=== PATIENT | male | born 1960 | race Caucasian/White ===

== ENCOUNTER 2019-08-02 23:08 | Inpatient (IN) | payer MEDICAID, OTHER ==
[~2019-08-02] VITALS: Ht 177.8 cm; Wt 70.6 kg
[2019-08-02] MEDS ORDERED: SODIUM CHLORIDE FLUSH 10ML SYR IVF ONE (23:30)
[2019-08-02] MEDS ORDERED: ONDANSETRON 2MG/ML, 2ML IVPush ONE (23:30)
[2019-08-02] MEDS ORDERED: ONDANSETRON 2MG/ML, 2ML ONE (23:30)
[2019-08-02] MEDS ORDERED: MORPHINE SULFATE 4 MG/ML, 1ML ONE (23:31)
[2019-08-02 23:34] LABS: BASOPHILS # (AUTO) 0.01 x10^3/uL (0-0.1); BASOPHILS % (AUTO) 0 % (0-1); EOSINOPHILS % (AUTO) 0 % (1-7); LYMPHOCYTES # (AUTO) 0.82 x10^3/uL (1-3.4); LYMPHOCYTES % (AUTO) 10 % (22-44); MD NO; MEAN CORPUSCULAR HEMOGLOBIN 30.8 pg (27.5-34.5); MEAN CORPUSCULAR HGB CONC 33.5 g/dL (33.2-36.2); MEAN CORPUSCULAR VOLUME 92.1 fL (81-97); MEAN PLATELET VOLUME 8.2 fL (7.4-10.4); MONOCYTES # (AUTO) 1.01 x10^3/uL (0.2-0.8); MONOCYTES % (AUTO) 13 % (2-9); NEUTROPHILS # (AUTO) 6.27 x10^3/uL (1.8-6.8); NEUTROPHILS % (AUTO) 77 % (42-75); PLATELET COUNT 153 x10^3/uL (130-400); RED CELL DISTRIBUTION WIDTH 15.2 % (9.4-14.8)
[2019-08-02] MEDS: MORPHINE SULFATE 4 MG/ML, 1ML IVPush PRN (23:38)
[2019-08-02 23:47] LABS: ALANINE AMINOTRANSFERASE 48 U/L (12-78); ALBUMIN 3.1 g/dL (3.4-5.0); ANION GAP 7 mmol/L (5-15); CALCIUM 8.2 mg/dL (8.5-10.1); CHLORIDE 99 mmol/L (98-107); CREATININE 1.03 mg/dL (0.7-1.3)
[2019-08-02 23:49] LABS: ALKALINE PHOSPHATASE 78 U/L (45-117); BILIRUBIN,TOTAL 0.4 mg/dL (0.2-1.0)
--- NOTE | 2019-08-02 23:55 | NUR ---
Patient bib remsa c/o abdominal pain x1 week. Patient states he [facility] and was diagnosed with influenza a. He has pain in the RLQ which he rates as a 8/10 on the pain scale.
--- NOTE | 2019-08-03 00:17 | NUR ---
Pt in [place]
[2019-08-03 01:40] LABS: MICROSCOPIC NOT IND
[2019-08-03] MEDS ORDERED: MORPHINE SULFATE 4 MG/ML, 1ML ONE (01:40)
[2019-08-03] MEDS: MORPHINE SULFATE 4 MG/ML, 1ML IVPush PRN (01:43)
[2019-08-03 01:51] LABS: CULTURE INDICATED? NO
[2019-08-03] MEDS ORDERED: CEFTRIAXONE PMX 1GM/50ML 50 ML ONE (01:56)
[2019-08-03] MEDS ORDERED: SODIUM CHLORIDE FLUSH 10ML SYR IVF ONE (02:00)
[2019-08-03] MEDS ORDERED: methylPREDNISolone SOD SUCC 125 MG/2 ML IV ONE (02:00)
[2019-08-03] MEDS ORDERED: ALBUTEROL/IPRATROPIUM 2.5MG/0.5MG, 3 ML NPPB ONE (02:00)
[2019-08-03] MEDS ORDERED: AZITHROMYCIN 500 MG in SODIUM CHLORIDE 0.9% 250 ML IVPB ONE (02:00)
[2019-08-03] MEDS ORDERED: CEFTRIAXONE PMX 1GM/50ML 50 ML IVPB ONE (02:00)
[2019-08-03] MEDS ORDERED: methylPREDNISolone SOD SUCC 125 MG/2 ML ONE (02:01)
[2019-08-03] MEDS ORDERED: ALBUTEROL/IPRATROPIUM 2.5MG/0.5MG, 3 ML ONE (02:06)
[2019-08-03] MEDS ORDERED: ALBUTEROL/IPRATROPIUM 2.5MG/0.5MG, 3 ML NPPB PRN (02:30)
[2019-08-03] MEDS ORDERED: ONDANSETRON 2MG/ML, 2ML IVPush PRN (02:30)
[2019-08-03] MEDS ORDERED: CYCLOBENZAPRINE 10 MG TABLET PO PRN (02:30)
[2019-08-03] MEDS ORDERED: morphine SULFATE 10 MG/ML, 1ML IVPush PRN (02:30)
[2019-08-03] MEDS: IPRATROPIUM 0.5 MG/2.5 ML INHA NPPB SCH ×4 (03:00→20:16)
[2019-08-03 04:33] LABS: RAPID INFLUENZA A POSITIVE (Negative); RAPID INFLUENZA B Negative (Negative)
[2019-08-03] MEDS ORDERED: OMNIPAQUE 350 MG/ML, 100ML BOTTLE ONE (06:22)
[2019-08-03 07:51] VITALS: BP 113/67
[2019-08-03] MEDS: AMOXICILLIN/CLAV 875-125MG TABLET PO SCH ×2 (08:18→20:52)
[2019-08-03] MEDS: OSELTAMIVIR 75 MG CAPSULE PO SCH ×2 (08:18→20:52)
[2019-08-03] MEDS: DOXYCYCLINE 100MG TABLET PO SCH ×2 (08:18→20:52)
[2019-08-03] MEDS: GUAIFENESIN 200 MG TABLET PO SCH ×3 (08:18→20:52)
[2019-08-03] MEDS: methylPREDNISolone SOD SUCC 40 MG/ML IV SCH ×2 (08:24→15:51)
[2019-08-03 13:51] VITALS: BP 127/66
[2019-08-03] MEDS: SODIUM CHLORIDE 0.9% 1,000 ML IV SCH (15:51)
[2019-08-03] MEDS: GUAIFENESIN/DM 200-20MG, 10ML UDC PO PRN (17:35)
[2019-08-03 19:24] VITALS: BP 104/69
[2019-08-04] MEDS: SODIUM CHLORIDE 0.9% 1,000 ML IV SCH (00:20)
[2019-08-04] MEDS: methylPREDNISolone SOD SUCC 40 MG/ML IV SCH ×4 (00:24→21:05)
[2019-08-04 01:54] VITALS: BP 119/79
[2019-08-04] MEDS: HYDROcodone/APAP 5/325 TABLET PO PRN ×5 (02:09→19:49)
[2019-08-04] MEDS: GUAIFENESIN/DM 200-20MG, 10ML UDC PO PRN ×3 (02:10→19:48)
[2019-08-04] MEDS: IPRATROPIUM 0.5 MG/2.5 ML INHA NPPB SCH ×4 (03:00→21:00)
[2019-08-04] MEDS: GUAIFENESIN 200 MG TABLET PO SCH ×5 (05:22→21:04)
[2019-08-04 05:44] LABS: CHLORIDE 105 mmol/L (98-107)
[2019-08-04 05:48] LABS: BASOPHILS # (AUTO) 0.01 x10^3/uL (0-0.1); BASOPHILS % (AUTO) 0 % (0-1); EOSINOPHILS % (AUTO) 0 % (1-7); LYMPHOCYTES # (AUTO) 0.89 x10^3/uL (1-3.4); LYMPHOCYTES % (AUTO) 10 % (22-44); MD NO; MEAN CORPUSCULAR HEMOGLOBIN 30.9 pg (27.5-34.5); MEAN CORPUSCULAR VOLUME 93.5 fL (81-97); MEAN PLATELET VOLUME 8.6 fL (7.4-10.4); MONOCYTES # (AUTO) 1.33 x10^3/uL (0.2-0.8); MONOCYTES % (AUTO) 15 % (2-9); NEUTROPHILS % (AUTO) 75 % (42-75); PLATELET COUNT 144 x10^3/uL (130-400); RED BLOOD COUNT 4.16 x10^6/uL (4.38-5.82); RED CELL DISTRIBUTION WIDTH 15.5 % (9.4-14.8)
[2019-08-04 05:52] LABS: ALANINE AMINOTRANSFERASE 43 U/L (12-78); ALBUMIN 2.8 g/dL (3.4-5.0); ALKALINE PHOSPHATASE 60 U/L (45-117); ANION GAP 2 mmol/L (5-15); BILIRUBIN,TOTAL 0.5 mg/dL (0.2-1.0); CALCIUM 8.2 mg/dL (8.5-10.1); CREATININE 0.81 mg/dL (0.7-1.3); TOTAL PROTEIN 6.2 g/dL (6.4-8.2)
[2019-08-04 07:11] VITALS: BP 106/68
[2019-08-04] MEDS ORDERED: LEVOFLOXACIN/PMX 750MG/150ML 150 ML IV SCH (08:00)
[2019-08-04] MEDS: DOXYCYCLINE 100MG TABLET PO SCH ×2 (08:21→21:04)
[2019-08-04] MEDS: AMOXICILLIN/CLAV 875-125MG TABLET PO SCH ×2 (08:21→21:04)
[2019-08-04] MEDS: OSELTAMIVIR 75 MG CAPSULE PO SCH ×2 (08:21→21:04)
[2019-08-04 13:29] VITALS: BP 113/76
[2019-08-04] MEDS: ALBUTEROL/IPRATROPIUM 2.5MG/0.5MG, 3 ML NPPB SCH ×3 (15:05→20:10)
[2019-08-04 19:43] VITALS: BP 135/88
[2019-08-04 23:31] VITALS: BP 138/84
[2019-08-05] MEDS: HYDROcodone/APAP 5/325 TABLET PO PRN ×3 (00:26→15:25)
[2019-08-05] MEDS: GUAIFENESIN 200 MG TABLET PO SCH ×4 (05:05→21:41)
[2019-08-05 05:29] LABS: CHLORIDE 104 mmol/L (98-107)
[2019-08-05 05:33] LABS: MEAN CORPUSCULAR HEMOGLOBIN 30.5 pg (27.5-34.5); MEAN CORPUSCULAR HGB CONC 32.5 g/dL (33.2-36.2); MEAN CORPUSCULAR VOLUME 93.8 fL (81-97); MEAN PLATELET VOLUME 8.9 fL (7.4-10.4); PLATELET COUNT 179 x10^3/uL (130-400); RED BLOOD COUNT 4.41 x10^6/uL (4.38-5.82); RED CELL DISTRIBUTION WIDTH 15.5 % (9.4-14.8)
[2019-08-05 05:36] LABS: ALANINE AMINOTRANSFERASE 44 U/L (12-78); ALBUMIN 2.9 g/dL (3.4-5.0); ALKALINE PHOSPHATASE 63 U/L (45-117); ANION GAP 4 mmol/L (5-15); BILIRUBIN,TOTAL 0.5 mg/dL (0.2-1.0); CALCIUM 8.7 mg/dL (8.5-10.1); TOTAL PROTEIN 6.6 g/dL (6.4-8.2)
[2019-08-05 05:56] LABS: MD YES
[2019-08-05 05:58] LABS: BAND#(MANUAL) 0.14 x10^3/uL; BANDS%(MANUAL) 1 % (0-7); LYMPH#(MANUAL) 2.57 x10^3/uL (1-3.4); LYMPHS% (MANUAL) 19 % (22-44)
[2019-08-05 06:01] LABS: MONOS#(MANUAL) 0.81 x10^3/uL (0.3-2.7); MONOS% (MANUAL) 6 % (2-9); REACTIVE LYMPHS # (MANUAL) 0.54 x10^3/uL (0-0); REACTIVE LYMPHS % (MANUAL) 4 % (0-0); SEG#(MANUAL) 9.45 x10^3/uL (1.8-6.8); SEGS% (MANUAL) 70 % (42-75)
[2019-08-05 06:02] LABS: <RBC MORPHOLOGY> NORMAL
[2019-08-05 06:03] LABS: <PLATELET ESTIMATE> ADEQUATE; <PLT MORPHOLOGY> NORMAL PLT MORPH
[2019-08-05] MEDS: ALBUTEROL/IPRATROPIUM 2.5MG/0.5MG, 3 ML NPPB SCH ×4 (07:10→18:17)
[2019-08-05 07:17] VITALS: BP 122/67
[2019-08-05] MEDS: GUAIFENESIN/DM 200-20MG, 10ML UDC PO PRN ×2 (07:43→15:54)
[2019-08-05] MEDS: DOXYCYCLINE 100MG TABLET PO SCH ×2 (08:26→21:42)
[2019-08-05] MEDS: OSELTAMIVIR 75 MG CAPSULE PO SCH ×2 (08:26→21:41)
[2019-08-05] MEDS: methylPREDNISolone SOD SUCC 40 MG/ML IV SCH ×2 (08:26→21:41)
[2019-08-05] MEDS: AMOXICILLIN/CLAV 875-125MG TABLET PO SCH ×2 (08:26→21:41)
[2019-08-05 13:39] VITALS: BP 136/79
[2019-08-05] MEDS ORDERED: OMNIPAQUE 350 MG/ML, 100ML BOTTLE ONE (15:08)
[2019-08-05 19:47] VITALS: BP 126/67
[2019-08-05] MEDS: DOCUSATE 100 MG CAPSULE PO SCH (21:42)
[2019-08-06 01:26] VITALS: BP 138/79
[2019-08-06] MEDS: ALBUTEROL/IPRATROPIUM 2.5MG/0.5MG, 3 ML NPPB SCH ×4 (06:00→21:00)
[2019-08-06 06:45] VITALS: BP 128/82
[2019-08-06] MEDS: GUAIFENESIN 200 MG TABLET PO SCH ×4 (06:48→21:00)
[2019-08-06] MEDS: methylPREDNISolone SOD SUCC 40 MG/ML IV SCH ×2 (10:56→21:00)
[2019-08-06] MEDS: GUAIFENESIN/DM 200-20MG, 10ML UDC PO PRN (10:57)
[2019-08-06] MEDS: AMOXICILLIN/CLAV 875-125MG TABLET PO SCH ×2 (10:58→21:00)
[2019-08-06] MEDS: DOXYCYCLINE 100MG TABLET PO SCH ×2 (10:58→21:00)
[2019-08-06] MEDS: DOCUSATE 100 MG CAPSULE PO SCH ×2 (10:58→21:00)
[2019-08-06] MEDS: OSELTAMIVIR 75 MG CAPSULE PO SCH ×2 (10:59→21:00)
[2019-08-06 12:00] VITALS: BP 143/76
[2019-08-06] MEDS ORDERED: MAALOX/HYOSCYAMINE/LIDOCAINE 45 ML BTL PO PRN (12:00)
[2019-08-06] MEDS ORDERED: OMNIPAQUE 350 MG/ML, 100ML BOTTLE ONE (14:10)
[2019-08-06 18:12] LABS: MEAN CORPUSCULAR HEMOGLOBIN 30.6 pg (27.5-34.5); MEAN CORPUSCULAR HGB CONC 33.1 g/dL (33.2-36.2); MEAN CORPUSCULAR VOLUME 92.6 fL (81-97); MEAN PLATELET VOLUME 8.2 fL (7.4-10.4); PLATELET COUNT 242 x10^3/uL (130-400); RED BLOOD COUNT 4.69 x10^6/uL (4.38-5.82); RED CELL DISTRIBUTION WIDTH 15.1 % (9.4-14.8)
[2019-08-06 18:45] LABS: BASOPHILS # (AUTO) 0.01 x10^3/uL (0-0.1); BASOPHILS % (AUTO) 0 % (0-1); EOSINOPHILS % (AUTO) 0 % (1-7); LYMPHOCYTES # (AUTO) 1.13 x10^3/uL (1-3.4); LYMPHOCYTES % (AUTO) 9 % (22-44); MD SCAN; MONOCYTES # (AUTO) 0.73 x10^3/uL (0.2-0.8); MONOCYTES % (AUTO) 6 % (2-9); NEUTROPHILS # (AUTO) 11.22 x10^3/uL (1.8-6.8); NEUTROPHILS % (AUTO) 86 % (42-75)
[2019-08-06 19:46] VITALS: BP 126/62
[2019-08-06 22:16] LABS: MICROSCOPIC NOT IND
[2019-08-06 22:25] LABS: CULTURE INDICATED? NO
[2019-08-07 01:04] VITALS: BP 116/71
[2019-08-07 05:10] LABS: MEAN CORPUSCULAR HEMOGLOBIN 30.4 pg (27.5-34.5); MEAN CORPUSCULAR HGB CONC 33.1 g/dL (33.2-36.2); MEAN CORPUSCULAR VOLUME 91.7 fL (81-97); MEAN PLATELET VOLUME 8.2 fL (7.4-10.4); PLATELET COUNT 260 x10^3/uL (130-400); RED BLOOD COUNT 4.63 x10^6/uL (4.38-5.82); RED CELL DISTRIBUTION WIDTH 15.5 % (9.4-14.8)
[2019-08-07 05:21] LABS: CALCIUM 8.4 mg/dL (8.5-10.1); CHLORIDE 102 mmol/L (98-107)
[2019-08-07 05:27] LABS: ALANINE AMINOTRANSFERASE 53 U/L (12-78); ALKALINE PHOSPHATASE 71 U/L (45-117); ANION GAP 5 mmol/L (5-15); BILIRUBIN,TOTAL 0.7 mg/dL (0.2-1.0); CREATININE 0.81 mg/dL (0.7-1.3); TOTAL PROTEIN 6.6 g/dL (6.4-8.2)
[2019-08-07] MEDS: GUAIFENESIN 200 MG TABLET PO SCH ×2 (05:38→11:00)
[2019-08-07 05:43] LABS: BASOPHILS # (AUTO) 0.05 x10^3/uL (0-0.1); BASOPHILS % (AUTO) 0 % (0-1); EOSINOPHILS # (AUTO) 0.01 x10^3/uL (0-0.4); EOSINOPHILS % (AUTO) 0 % (1-7); LYMPHOCYTES # (AUTO) 2.65 x10^3/uL (1-3.4); LYMPHOCYTES % (AUTO) 22 % (22-44); MD SCAN; MONOCYTES # (AUTO) 1.61 x10^3/uL (0.2-0.8); MONOCYTES % (AUTO) 14 % (2-9); NEUTROPHILS # (AUTO) 7.48 x10^3/uL (1.8-6.8); NEUTROPHILS % (AUTO) 64 % (42-75)
[2019-08-07] MEDS: ALBUTEROL/IPRATROPIUM 2.5MG/0.5MG, 3 ML NPPB SCH (07:30)
[2019-08-07 07:55] VITALS: BP 108/68
[2019-08-07 08:58] VITALS: BP 107/69
[2019-08-07] MEDS: OSELTAMIVIR 75 MG CAPSULE PO SCH (09:00)
[2019-08-07] MEDS: AMOXICILLIN/CLAV 875-125MG TABLET PO SCH (09:00)
[2019-08-07] MEDS: methylPREDNISolone SOD SUCC 40 MG/ML IV SCH (09:00)
[2019-08-07] MEDS: DOCUSATE 100 MG CAPSULE PO SCH (09:00)
[2019-08-07] MEDS: DOXYCYCLINE 100MG TABLET PO SCH (09:00)
[2019-08-07] MEDS ORDERED: ALBUTEROL/IPRATROPIUM 2.5MG/0.5MG, 3 ML NPPB PRN (10:00)
[2019-08-07] MEDS ORDERED: AMOX1TAB12 PO (12:00)
[2019-08-07] MEDS ORDERED: ALBU90AE INH (12:00)
[2019-08-07] MEDS ORDERED: OSEL75CA14 PO (12:00)
[2019-08-07] MEDS ORDERED: DOXY100T PO (12:00)
[2019-08-07] MEDS ORDERED: GUAI200T37 PO (12:00)
[2019-08-07] MEDS ORDERED: BUDE10.2 INH (12:00)
[2019-08-07] MEDS ORDERED: TIOT18CA INH (12:00)
[2019-08-07] MEDS ORDERED: FLU VACC QS2019-20 36MOS UP/PF 0.5 ML IM-VACC ONE (13:30)
[2019-08-07 14:42] VITALS: BP 109/70
== END 2019-08-07 15:45 | disposition left against medical advice (07) | DRG 193 ==
LOC: ED 08-03 02:25 → EDIP 08-03 02:38 → 4NE 08-03 03:14
PROVIDERS: ADMIT Internal Medicine; ATTEND Internal Medicine
DX: J10.08 Influenza due to other identified influenza virus with other specified pneumonia (principal); J96.01 Acute respiratory failure with hypoxia; K66.1 Hemoperitoneum; E87.1 Hypo-osmolality and hyponatremia; M79.81 Nontraumatic hematoma of soft tissue; J15.9 Unspecified bacterial pneumonia; J44.0 Chronic obstructive pulmonary disease with (acute) lower respiratory infection; J44.1 Chronic obstructive pulmonary disease with (acute) exacerbation; F17.210 Nicotine dependence, cigarettes, uncomplicated
CPT/HCPCS: 36415; 87400; 96374; 96375; 99285; J7620; J7644; 71045; 71275; 74177; 76857; 80053; 81003; 83690; 85014; 85018; 85025; 85379; 87040; 90686; 93005; 94640; G0378; J0696; J2405; Q9967; J2270; J2920; J2930; J7030